=== PATIENT | female | born 1980 | race Caucasian/White ===

== ENCOUNTER 2018-10-02 10:58 | Emergency (ER) | payer BC ==
[~2018-10-02] VITALS: Ht 162.6 cm; Wt 116.6 kg
[~2018-10-02 10:58] MED LIST: FLAGYL500 MG PO; LEVAQUIN500 MG PO; PROTONIX40 MG/ML PO; ULTRAM 50MG50 MG PO
--- OUTSIDE RECORDS SUMMARY | 2018-10-02 11:01 | XMS REPORT | Encounter Summary ---
Author Organization Unknown Address [address] [place] [address] Phone [phone] Reason for Visit Medical Complaint Instructions 1. Acute sinusitis sinusitis: care instructions Augmentin 875 mg-125 mg tablet Lidocaine Viscous 2 % mucosal solution 2. Acute tonsillitis sore throat: care instructions rapid strep group A, throat tonsillitis: care instructions 3. Body mass index 30+ - obesity eating healthy foods: care instructions Discussion Note F/U with your PCP within 3-5 days if s/s continue or worsen. Handout that was given and reviewed and pt verbalized understanding. For worsenening symptoms or shortness/ chest pain develop F/U with ER [facility]. Plan of Care Patient Instructions Take charge of your health handout given and discussed. SE of medictions discussed and pt verbalized understanding. Reminders Provider Appointments None recorded. Lab Rapid Strep Group a, Throat 05/25/2017 [facility] Referral None recorded. Procedures None recorded. Surgeries None recorded. Imaging None recorded. Medications Name Start Date Augmentin 875 mg-125 mg tablet Take 1 tablet every 12 hours by oral route with meals for 10 days. Lidocaine Viscous 2 % mucosal solution swish and spit 15 ml PO [id number] prn as for sore throat. Medications Administered None recorded. Vitals Height Weight BMI Blood Pressure 5 ft 5 in 240 lbs 39.9 kg/m2 112/70 mm[Hg] Lab Results Date Name Specimen Result Interpretation Description Value Range Status Address Rapid Strep Group a, Throat Result negative [facility]: [address] [place] [address] Swab Location Left and Right tonsillar pillars [facility]: [address] [place] [address] Allergies Code Code System Name Reaction Severity Status Onset 7258 RxNorm Naproxen Active Problems No Known Problems Procedures Date Name Performed by Cholecystectomy Information not available Appendectomy Information not available Information not available Vaccine List None recorded. Social History Smoking Status Never Smoker Past Encounters 05/25/2017 Acute Sinusitis; Acute Tonsillitis; Body Mass Index 30+ - Obesity Trista Gomez NP: [address] [place] [address], Ph. History of Present Illness Wvyaj-Jjhhnhshjj-Wyztklj Reported By: Patient HPI: Location: head/sinuses, throat. Quality: sore throat, nasal/sinus congestion. Duration: 4days. Severity: pain level 8/10. Onset/Timing: gradual. Context: no sick contacts, no foreign travel, non-smoker. Modifying factors: OTC medication. Associated Symptoms: no sputum production, no shortness of breath, no wheezing, no change in number of pillows needed to sleep at night, no sweats, no significant weight gain, no significant weight loss, no morning cough, no vomiting, no diarrhea, no rash, no nausea, no fever, sore throat, fever, muscle aches, headache Review of Systems Basic Reported By: Patient Vkhx-Flub-Fnmea-Throat: Ears: ear pain Neurologic: Neurologic: no dizziness Physical Exam Adult Basic, Adult Female Complete Reported By: Patient Constitutional: General Appearance: obese. Level of Distress: NAD. Ambulation: ambulating normally Psychiatric: Mental Status: active and alert. Orientation: to time, to place, to person Eyes: Lids and Conjunctivae: non-injected, no discharge, no pallor. Pupils: PERRLA. Sclerae: non-icteric Inu-Bjfu-Hmisz-Throat: Ears: no lesions on external ear, no outer ear tenderness, EACs clear, TMs clear. Hearing: no hearing loss. Nose: no lesions on external nose, nares patent, no septal deviation, nasal passages clear, sinus tenderness, post nasal drip. Lips, Teeth, and Gums: no mouth or lip ulcers. Oropharynx: moist mucous membranes, erythema, exudates, tonsils enlarged 2+ Neck: Neck: supple. Lymph Nodes: anterior cervical LAD Lungs: Respiratory effort: no dyspnea, no tachypnea, no use of accessory muscles, no intercostal retractions. Auscultation: breath sounds normal Cardiovascular: Heart Auscultation: RRR, no murmurs Neurologic: Gait and Station: normal gait, normal station
--- OUTSIDE RECORDS SUMMARY | 2018-10-02 11:01 | XMS REPORT | Continuity of Care Document ---
Author Author [employer] Address Unknown Phone Unavailable Care Team Providers Care Wash Barrel Leader Name Role Phone DEMANDIT Information Molecule Synth Unavailable Unavailable Problems Problem Status Onset Date Classification Date Reported Comments Source Body mass index 30+ - obesity 05/25/2017 Diagnosis 05/25/2017 [facility] Acute tonsillitis 05/25/2017 Diagnosis 05/25/2017 [facility] Acute sinusitis 05/25/2017 Diagnosis 05/25/2017 [facility] Medications Medication Details Route Status Patient Instructions Ordering Provider Order Date Source Amoxicillin 875 MG / Clavulanate 125 MG Oral Tablet [Augmentin] Augmentin 875 mg-125 mg tablet Take 1 tablet every 12 hours by oral route with meals for 10 days. Active [facility] Lidocaine Hydrochloride 20 MG/ML Mucous Membrane Topical Solution Lidocaine Viscous 2 % mucosal solution swish and spit 15 ml PO [id number] prn as for sore throat. Active [facility] Allergies, Adverse Reactions, Alerts Substance Category Reaction Severity Reaction type Status Date Reported Comments Source Naproxen Allergy to substance 05/25/2017 [facility] Immunizations No Data Provided for This Section Results Order Name Results Value Reference Range Date Interpretation Comments Source RESULT negative 05/25/2017 [facility] SWAB LOCATION Left and Right tonsillar pillars 05/25/2017 [facility] Pathology Reports No Data Provided for This Section Diagnostic Reports No Data Provided for This Section Consultation Notes No Data Provided for This Section Discharge Summaries No Data Provided for This Section History and Physicals No Data Provided for This Section Vital Signs Vital Sign Value Date Comments Source Diastolic (mm Hg) 70 05/25/2017 [facility] Height 65 05/25/2017 [facility] Systolic (mm Hg) 112 05/25/2017 [facility] Weight 240 05/25/2017 [facility] Encounters Location Location Details Encounter Type Encounter Number Reason For Visit Attending Provider ADM Date DC Date Status Source [place] - [facility] - [id number] Trista Gomez PHYSICAL GEOGRAPHER: [address], [place] [address], Ph. [id number] Trista Gomez 05/25/2017 [facility] [place] - [facility] - [id number] Trista Gomez, PHYSICAL GEOGRAPHER: [address], [place], [place] [address], Ph. [id number] Trista Gomez 05/25/2017 [facility] Procedures Procedure Code Date Perfomer Comments Source Cholecystectomy [facility] Appendectomy [facility] Assessment and Plan No Data Provided for This Section Plan of Care No Data Provided for This Section Social History Social History Date Source Smoking Status Never Smoker 05/25/2017 [facility] Family History No Data Provided for This Section Advance Directives No Data Provided for This Section Functional Status No Data Provided for This Section
--- OUTSIDE RECORDS SUMMARY | 2018-10-02 11:01 | XMS REPORT | Encounter Summary ---
Author Organization Unknown Address [address] [place] [address] Phone [phone] Reason for Visit Medical Complaint Instructions 1. Acute sinusitis sinusitis: care instructions Augmentin 875 mg-125 mg tablet Lidocaine Viscous 2 % mucosal solution 2. Acute tonsillitis sore throat: care instructions rapid strep group A, throat tonsillitis: care instructions culture, respiratory - 05/25/2017@1035am 3. Body mass index 30+ - obesity [...] Strep Group a, Throat 05/25/2017 [facility] Culture, Respiratory 05/25/2017 [facility] Referral None recorded. Procedures None recorded. Surgeries None recorded. Imaging None recorded. Medications Name Start Date Augmentin 875 mg-125 mg tablet Take 1 tablet every 12 hours by oral route with meals for 10 days. Lidocaine Viscous 2 % mucosal solution swish and spit 15 ml PO [id number] prn as for sore throat. Medications Administered None recorded. Vitals Height Weight BMI Blood Pressure 5 ft 5 in 240 lbs 39.9 kg/m2 112/70 mm[Hg] Lab Results Date Name Specimen Result Interpretation Description Value Range Status Address Rapid Strep Group a, Throat Result negative [facility]: [address] [place] [address] Swab Location Left and Right tonsillar pillars [facility]: [address] [place] [address] Allergies Code Code System Name Reaction Severity Status Onset 7258 RxNorm Naproxen Active Problems No Known Problems Procedures Date Name Performed by Cholecystectomy Information not available Appendectomy Information not available Information not available Vaccine List None recorded. Social History Smoking Status Never Smoker Past Encounters 05/25/2017 Acute Sinusitis; Acute Tonsillitis; Body Mass Index 30+ - Obesity Trista Latta, OBEDIENCE TRAINER: [address] [facility], [place] [address], Ph. History of Present Illness Hxknb-Ozjonobzkj-Iwmgits Reported By: Patient HPI: Location: head/sinuses, throat. [...] Review of Systems Basic Reported By: Patient Yfea-Kwfw-Ygobs-Throat: Ears: ear pain Neurologic: Neurologic: no dizziness Physical Exam Adult Basic, Adult Female Complete Reported By: Patient Constitutional: General Appearance: obese. Level of Distress: NAD. Ambulation: ambulating normally Psychiatric: Mental Status: active and alert. Orientation: to time, to place, to person Eyes: Lids and Conjunctivae: non-injected, no discharge, no pallor. Pupils: PERRLA. Sclerae: non-icteric Mnr-Njne-Dient-Throat: Ears: no lesions on external ear, no [...]
[2018-10-02] MEDS ORDERED: SODIUM CHLORIDE 0.9% 1000ML 1,000 ML IV STA (11:15)
--- NOTE | 2018-10-02 12:00 | NUR ---
PATIENT TO ROOM 6
--- NOTE | 2018-10-02 12:15 | Diagnostic Imaging Report ---
EXAMINATION: SHOULDER LEFT 1 VIEW INDICATION: Shoulder dislocation COMPARISON: None FINDINGS: There is anterior left shoulder dislocation. Cortical irregularity at the superior aspect of the humeral head may represent degenerative change versus a superimposed proximal humeral fracture. The partially visualized portions of the left lung appear clear. IMPRESSION: Anterior left shoulder dislocation. Cortical irregularity at superior aspect of left humeral head may represent degenerative change versus a superimposed proximal humeral fracture. Evaluation is limited on this underpenetrated portable radiograph. Signed by: Benedicto Larsen MD on 10/02/2018 12:12 PM
[2018-10-02] MEDS ORDERED: ONDANSETRON HCL INJ 2MG/ML 2ML 2 MG/ML VIAL IV STA (12:21)
[2018-10-02] MEDS ORDERED: MORPHINE SULFATE 2 MG/ML SYR 1ML IV STA (12:21)
[2018-10-02] MEDS ORDERED: HYDROMORPHONE 1MG/1ML INJ IV STA (12:56)
--- NOTE | 2018-10-02 13:15 | NUR ---
REPORT TO YVROSE Tuprin
--- NOTE | 2018-10-02 14:05 | Diagnostic Imaging Report ---
EXAMINATION: SHOULDER LEFT 1 VIEW INDICATION: Shoulder dislocation COMPARISON: Left shoulder radiograph of earlier the same day. FINDINGS: Single portable radiograph of the left shoulder demonstrates interval reduction of previously seen anterior shoulder dislocation. Depression at the superolateral humeral head is consistent with a Hill-Sachs lesion. IMPRESSION: Interval reduction of left anterior shoulder dislocation. Hill-Sachs lesion. Signed by: Benedicto Larsen MD on 10/02/2018 2:02 PM
== END 2018-10-02 15:37 | disposition home or self-care (01) ==
LOC: ER 10:58
DX: S43.015A Anterior dislocation of left humerus, initial encounter (principal); X50.1XXA Overexertion from prolonged static or awkward postures, initial encounter; Y93.68 Activity, volleyball (beach) (court); Y99.0 Civilian activity done for income or pay
CPT/HCPCS: 23650; 73020; 81025; 99284; J1170; J2270; J2405; J7030